=== PATIENT | female | born 1955 | race Caucasian/White ===

== ENCOUNTER 2022-11-22 13:09 | Emergency (ER) | payer MEDICARE, SELFPAY ==
[2022-11-22] VITALS (28 sets, daily range): BP systolic 103–142; BP diastolic 66–92; PULSE 83–106; RESP 17–27; TEMP 36.7–36.8; O2SAT 91–97
--- NOTE | ~2022-11-22 | XR_ITS ---
EXAMINATION: XR chest 1V portable DATE: 11/22/2022 13:33 INDICATION: Right chest pain. TECHNIQUE: A single frontal view of the chest was obtained. COMPARISON: None. FINDINGS: There are staple lines at the right hilum. There is mild atelectasis in right lower lung zo ne. No pleural effusion or pneumothorax. The heart size is normal. There is a right 6 rib defect, lik kianna from thoracotomy. Breast implants are noted. IMPRESSION: 1. Mild atelectasis in right lower lung zone. Reviewed, dictated and finalized at location A. [facility]
--- NOTE | 2022-11-22 13:16 | ED.GENADULT ---
HPI - General Adult General Chief complaint: Chest Pain Stated complaint: chest pain Time Seen by Provider: 11/22/22 13:10 History of Present Illness HPI narrative: Jodi is a 67F with a PMH of emphysema and lung cancer that presented to the ED with chest pain for 20 minutes that started after eating sausage at [employer]. She has right sided chest pain that is worse when she breaths out. No N/V, lightheadedness but she is anxious and feels flushed. She has also had URI type symptoms for a few days. Related Data Home Medications Medication Instructions Recorded Confirmed albuterol 90 mcg/actuation aerosol 90 mcg inhalation Q4-6H PRN 11/22/22 11/22/22 inhaler Shortness Of Breath budesonide 160 mcg-glycopyr 9 2 inh inhalation BID 11/22/22 11/22/22 mcg-formot 4.8 mcg/actuation HFA inhaler (Breztri Aerosphere) Allergies Allergy/AdvReac Type Severity Reaction Status Date / Time oxycodone Allergy Hallucinati Verified 11/22/22 13:28 ng Review of Systems Review of Systems: All systems reviewed & are unremarkable except as noted in HPI and below Exam Const: General: alert Nutritional Appearance: well nourished Other: mild distress HENMT: Head: normal to inspection Ears: external ears normal and TM's normal bilaterally Face/Nose/Sinus: Normal external nose present Eyes: Conjunctivae: conjunctivae normal Pupils: Equal, round and reactive pupils present Neck: Neck: normal visual inspection Chest: Chest palpation & inspection: normal inspection of the chest Resp: Effort & Inspection: normal respiratory effort and not labored Auscultation: clear to auscultation bilaterally Other: tachypnea Cardio: Rate: regular rate Rhythm: regular rhythm Heart sounds: no murmurs GI: Inspection: non-distended Skin: General skin exam: normal color Neuro: General: patient oriented x3 and moves all extremities Extrem: General: normal to inspection Psych: Mental Status: mental status grossly normal Course Course Emergency Course: Ordered labs, CXR, EKG and nitro as well as ativan as she was very worked up. EKG showed sinus rhythm at 99, normal axis, and no ectopy or ST elevation. Pain was very relieved by nitro and did not return. Original troponin was negative. Heart score of 2 for age. Troponin was repeated at 3 hours and negative. Vital Signs Vital signs: Vital Signs Temperature 98.1 F 11/22/22 13:23 Pulse Rate 106 H 11/22/22 13:23 Respiratory Rate 17 11/22/22 13:23 Blood Pressure 142/92 H 11/22/22 13:23 Pulse Oximetry 97 11/22/22 13:23 Oxygen Delivery Room Air 11/22/22 13:23 Temperature 98.1 F 11/22/22 13:23 Pulse Rate 87 11/22/22 17:01 Respiratory Rate 19 11/22/22 14:30 Blood Pressure 133/73 11/22/22 17:00 Pulse Oximetry 94 11/22/22 17:01 Oxygen Delivery Room Air 11/22/22 13:23 Medical Decision Making Vital Signs Vital Signs: Vital Signs Temperature 98.1 F 11/22/22 13:23 Pulse Rate 106 H 11/22/22 13:23 Respiratory Rate 17 11/22/22 13:23 Blood Pressure 142/92 H 11/22/22 13:23 Pulse Oximetry 97 11/22/22 13:23 Oxygen Delivery Room Air 11/22/22 13:23 Temperature 98.1 F 11/22/22 13:23 Pulse Rate 87 11/22/22 17:01 Respiratory Rate 19 11/22/22 14:30 Blood Pressure 133/73 11/22/22 17:00 Pulse Oximetry 94 11/22/22 17:01 Oxygen Delivery Room Air 11/22/22 13:23 Lab Data 11/22/22 13:39 11/22/22 13:39 Labs: Lab Results 11/22/22 11/22/22 11/22/22 Range/Units 13:39 13:39 13:39 WBC 6.3 (4.8-10.8) K/mm3 RBC 4.47 (4.20-5.40) M/mm3 Hgb 13.8 (11.7-13.8) g/dL Hct 42.1 H (35.0-42.0) % MCV 94.2 (78.0-102.0) fL MCH 30.9 (27.0-31.0) pg MCHC 32.8 (32.0-36.0) g/dL RDW 12.7 (11.6-14.4) % Plt Count 247 (150-420) K/mm3 MPV 10.2 (9.2-11.8) fl Immature Gran % (Auto) 0.5 H (0.0-0.0) % Neut % (Auto) 60.5 (50.0-70.0) %
--- NOTE | 2022-11-22 13:26 | ECG_ITS ---
Measurements Intervals [place] Rate: 99 P: 83 IN: 144 QRS: 72 QRSD: 70 T: 69 QT: 311 QTc: 399 Interpretive Statements SINUS RHYTHM BASELINE ARTIFACT- I, II, III, AVR, AVL, AVF, V1-V6 NORMAL ECG NO PREVIOUS ECG AVAILABLE FOR COMPARISON Electronically Signed On 11-22-2022 21:10:01 [employer]INICAL [employer]IST MEDICAL DEVICE by Sarabjit Rao D.O.
[2022-11-22] MEDS: NITROGLYCERIN SL 0.4 MG TABLET SUBLINGUAL (13:35)
[2022-11-22] MEDS: LORazepam INJ (*CRX) 2 MG/ML VIAL 0.5 MG IV PUSH (13:41)
[2022-11-22 13:45] LABS: Basophils Absolute Auto 0.04 K/mm3 (0.00-0.10); Basophils Percent Auto 0.6 % (0.0-1.0); Eosinophils Absolute Auto 0.08 K/mm3 (0.02-0.50); Eosinophils Percent Auto 1.3 % (1.0-6.0); Hematocrit 42.1 % (35.0-42.0); Hemoglobin 13.8 g/dL (11.7-13.8); Immature Granulocyte Absolute 0.03 K/mm3 (0.00-0.00); Immature Granulocyte Percent A 0.5 % (0.0-0.0); Lymphocytes Absolute Auto 1.79 K/mm3 (1.10-4.50); Lymphocytes Percent Auto 28.3 % (18.0-42.0); Mean Corpuscular HGB Conc 32.8 g/dL (32.0-36.0); Mean Corpuscular Hemoglobin 30.9 pg (27.0-31.0); Mean Corpuscular Volume 94.2 fL (78.0-102.0); Mean Platelet Volume 10.2 fl (9.2-11.8); Monocytes Absolute Auto 0.56 K/mm3 (0.10-0.90); Monocytes Percent Auto 8.8 % (2.0-11.0); Neutrophils Absolute Auto 3.8 K/mm3 (1.7-7.2); Neutrophils Percent Auto 60.5 % (50.0-70.0); Platelet Count Result 247 K/mm3 (150-420); Red Blood Count 4.47 M/mm3 (4.20-5.40); Red Cell Distribution Width 12.7 % (11.6-14.4); White Blood Count 6.3 K/mm3 (4.8-10.8)
--- NOTE | 2022-11-22 13:53 | PC.NURSE ---
after one nitro patient's pain is gone.
[2022-11-22 13:56] LABS: INR 0.9; Prothrombin Time 10.3 Seconds (9.50-12.10)
[2022-11-22 14:05] LABS: Alanine Aminotransferase 18 U/L (14-59); Albumin Level 3.7 g/dL (3.4-5.0); Alkaline Phosphatase 108 U/L (46-116); Anion Gap 8 mmol/L (8-16); Aspartate Amino Transferase 20 U/L (15-37); Bilirubin,Total 0.3 mg/dL (0.00-1.00); Blood Urea Nitrogen 18 mg/dL (7-18); Calcium 9.3 mg/dL (8.5-10.1); Carbon Dioxide 27 mmol/L (21-32); Chloride 104 mmol/L (98-108); Estimated Glomerular Filt Rate 47; Glucose 130 mg/dL (70-99); Lipase 34 U/L (16-77); NT Pro B Type Natriuretic Pept 53 pg/mL (0-125); Osmolality Calculated 291 mOsm/kg (285-295); Potassium 4.2 mmol/L (3.5-5.1); Sodium 139 mmol/L (136-145); Total Protein 7.6 g/dL (6.4-8.2); Troponin I 4.1 ng/L (0.00-60.4)
[2022-11-22 14:22] LABS: Influenza A QL RT-PCR Negative (Negative); Influenza B QL RT-PCR Negative (Negative); SARS-CoV-2 RNA PCR Negative (Negative)
[2022-11-22 14:25] LABS: RSV RNA, RT-PCR Negative (Negative)
[2022-11-22] MEDS: ACETAMINOPHEN 500 MG TABLET 1000 MG PO (15:28)
[2022-11-22 16:55] LABS: Troponin I 4.5 ng/L (0.00-60.4)
== END 2022-11-22 17:19 | disposition home or self-care (01) ==
PROVIDERS: Emergency Provider Family Medicine; PCP Internal Medicine
DX: R07.9 Chest pain, unspecified (principal); J43.9 Emphysema, unspecified; Z20.822 Contact with and (suspected) exposure to COVID-19; Z85.118 Personal history of other malignant neoplasm of bronchus and lung
CPT/HCPCS: 36415; 71045; 80053; 83690; 83880; 84484; 85025; 85610; 87637; 93005; 96374; 99284; A9270; J2060